=== PATIENT | male | born 1935 | race Caucasian/White ===

== ENCOUNTER 2017-01-10 16:02 | Emergency (ER) | payer MEDICARE, OTHER ==
[2017-01-10 17:32] LABS: ABSOLUTE NEUTROPHIL COUNT 5.2 K/mm3 (1.8-7.7); BASO # 0.1 K/mm3 (0.0-0.2); BASO % 0.9 % (0.2-1.0); EOS # 0.2 (0.0-0.5); EOS % 2.3 % (0.9-2.9); HEMATOCRIT 47.6 % (32.0-52.0); HEMOGLOBIN 15.9 gm/l (14.0-18.0); IMM NEUT% 0.3 % (0-1); LYMPH # 1.6 (1.0-4.8); LYMPH % 20.5 % (15-45); MEAN CELL VOLUME 90.3 fl (80.0-94.0); MEAN CORPUSCULAR HEMOGLOBIN 30.2 pg (27.0-31.0); MEAN CORPUSCULAR HGB CONC 33.4 g/dl (33.0-37.0); MEAN PLATELET VOLUME 10.6 fl (7.4-10.4); MONO # 0.7 (0.0-0.8); MONO % 8.6 % (4-12); NEUT % 67.4 % (43-75); PLATELET COUNT 287 K/mm3 (130-400); RED CELL DISTRIBUTION WIDTH 12.2 % (11.5-14.5)
[2017-01-10] MEDS ORDERED: ASPIRIN CHEWTAB 81 MG TABLET ONE (17:41)
[2017-01-10 17:49] LABS: ALB/GLOB RATIO 1.6 (>1.0); ALBUMIN 4.2 gm/dL (3.5-5.7); CALCIUM 9.4 mg/dL (8.6-10.3)
--- NOTE | 2017-01-10 18:18 | CT ---
EXAMINATION: Noncontrast cranial CT. CLINICAL INDICATION: Increasing confusion. Dizziness. Intermittent visual changes. TECHNIQUE: A noncontrast cranial CT scan was obtained. Axial images were acquired from just above the vertex through the skull base. 4 mm stacked axial, coronal, and sagittal reconstructions were reviewed. COMPARISONS: Prior exam dated 01/25/2011. FINDINGS: The CSF containing spaces remain prominent throughout. There is diminished attenuation within the periventricular white matter tracts bilaterally. The small focus of diminished attenuation near the left insula/lateral basal ganglia is similar to the prior exam. No acute intercranial hemorrhage, mass or mass effect is identified. No extra-axial fluid collections are detected. The visualized segments of the posterior fossa are unremarkable. The cerebellar pontine angle cisterns are symmetric. The osseous structures are intact. The paranasal sinuses are clear. The visualized portions of the orbits are unremarkable. The mastoid sinuses are normal and symmetric. 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 Small focus of encephalomalacia lateral to the left basal ganglia near the insular sulcus is stable. No acute intracranial abnormalities are identified. The findings were uploaded to the electronic medical record for review at approximately 6:18 PM 01/10/2017
[2017-01-10 18:30] LABS: PH,URINE 6.5 (5.0-8.0); URINE BILIRUBIN NEGATIVE (NEGATIVE); URINE BLOOD NEGATIVE (NEGATIVE); URINE GLUCOSE (UA) NEGATIVE (NEGATIVE); URINE LEUKOCYTE ESTERASE NEGATIVE (NEGATIVE); URINE NITRITE NEGATIVE (NEGATIVE); URINE PROTEIN TRACE (NEGATIVE); URINE UROBILINOGEN NORMAL (0-1 mg/dl)
[2017-01-10 18:34] LABS: URINE APPEARANCE CLEAR; URINE COLOR YELLOW
== END 2017-01-10 18:48 | disposition home or self-care (01) ==
LOC: ED 16:02
DX: G43.909 Migraine, unspecified, not intractable, without status migrainosus (principal); R07.9 Chest pain, unspecified; H53.9 Unspecified visual disturbance
CPT/HCPCS: 85025; 80053; 81003; 84484; 70450; 99284 ×2; A9270

== ENCOUNTER 2017-01-11 13:05 | Emergency (ER) | payer MEDICARE, OTHER ==
[2017-01-11] MEDS ORDERED: PREDNISONE 20 MG TABLET ONE (13:49)
== END 2017-01-11 13:56 | disposition home or self-care (01) ==
LOC: ED 13:05
DX: L50.9 Urticaria, unspecified (principal); I10 Essential (primary) hypertension; Z86.73 Personal history of transient ischemic attack (TIA), and cerebral infarction without residual deficits
CPT/HCPCS: 99283 ×2; J7512